=== PATIENT | female | born 1955 | race Caucasian/White ===

== ENCOUNTER 2016-07-14 07:58 | Inpatient (IN) | payer SELFPAY ==
[~2016-07-14] VITALS: Ht 172.7 cm; Wt 83.5 kg
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
--- NOTE | ~2016-07-14 | CON ---
PATIENT'S NAME: KENZIE GARY [facility] AGE: 61 Y [address] ROOM: [place] [address] LOCATION: GPCU ADMIT DATE: 07/14/2016 Consultation DISCHARGE DATE: FAMILY PHYSICIAN: PHYSICIAN, NO ATTENDING PHYSICIAN: JULIAN BECKER DATE OF CONSULTATION: 07/20/2016 REFERRING PHYSICIAN: Blayne Marroquin D.O. REASON FOR VISIT: Wound Care visit to evaluate and assess the patient's sacrum. HISTORY OF PRESENT ILLNESS: This is a 61-year-old female patient who was admitted to [facility] with a pulmonary mass. She has significant history of type 2 diabetes mellitus, essential hypertension, GERD, and a left lower leg vein stripping in 1994. The patient underwent a right thoracentesis on July [address] Marroquin[address] [facility] RN screened the patient via the skin assessment and the patient noted to have shear and friction areas to her buttocks. Nursing has been applying Aloe [place] to site and the patient has been performing pressure redistribution measures and turning herself in bed q.2 hours. The patient has never had a pressure ulcer before. 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 She admits to wearing "semi-support hose" on and off. She denies pain. She denies history of congestive heart failure. She denies intermittent claudication symptoms. PAST MEDICAL HISTORY: Pneumonia, diabetes type 2, essential hypertension, GERD, osteoarthritis. PAST SURGICAL HISTORY: section x4 and a left lower leg vein stripping. FAMILY HISTORY: The patient's mother suffered from diabetes. SOCIAL HISTORY: The patient lives in [place], [place]. 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 She quit smoking in 2005. Prior to that, she had a 43-okqz-zxyi history. The patient denies alcohol or illegal drug use. ALLERGIES: PATIENT'S NAME: ABDIRAHMAN [facility] AGE: 61 Y [address] ROOM: [place] [address] LOCATION: GPCU ADMIT DATE: 07/14/2016 Consultation DISCHARGE DATE: FAMILY PHYSICIAN: PHYSICIAN, NO ATTENDING PHYSICIAN: JULIAN BECKER. CURRENT MEDICATIONS: Please refer to the medication administration record. REVIEW OF SYSTEMS: A 10-point review of systems was completed and all negative except as mentioned above in the HPI. PHYSICAL EXAMINATION: VITAL SIGNS: Temperature 98.3, pulse 83, respirations 20, blood pressure 138/65, and pulse oximetry 94%. Height 5 feet and 8 inches. Weight 93.0 kg. GENERAL: The patient is alert and oriented. Talkative. Slightly unkempt. HEENT: Head normocephalic and atraumatic. Anicteric sclerae. Oral mucosa intact. NECK: Supple. CARDIOVASCULAR: Regular rate and rhythm. ABDOMEN: Soft and nontender. EXTREMITIES: +1 pedal pulses to the left foot and +2 to right foot. Long thick mycotic toenails. Slight dryness to feet. Heels intact. Extremities are warm to touch. Telangiectasia around ankles. SKIN: No open areas noted. Blanchable redness to buttocks and sacrum. Shear and friction area has resolved. Groin folds intact. Dressing intact to the right lateral chest, chest tube intact. LABORATORY DATA: White blood cell count is 10.2, hemoglobin 8.9, hematocrit 27.5, and platelets 353. Sodium 141, potassium 3.5, chloride 106, bicarb 26, BUN 5, creatinine 0.7, glucose 194, and procalcitonin 0.12. ASSESSMENT AND PLAN: Again, this is a 61-year-old female patient who was admitted to [facility] with a pulmonary mass. Wound Care was consulted to evaluate and assess the patient's buttocks. 1. Blanchable redness to sacrum. It appears the shear and friction area has resolved. No pressure ulcers noted. The patient is well aware of pressure redistribution measures and was instructed to turn herself in bed every 2 hours. Nursing is to continue to apply Aloe [place] q.i.d. and p.r.n. incontinence to this site. The patient was instructed to increase her protein intake. 2. Type 2 diabetes mellitus, the patient recently diagnosed. Hospitalist is managing. I would like to thank Dr. Marroquin for this consultation. PATIENT'S NAME: KENZIE GARY [facility] AGE: 61 Y [address] ROOM: [place] [address] LOCATION: GPCU ADMIT DATE: 07/14/2016 Consultation DISCHARGE DATE: FAMILY PHYSICIAN: PHYSICIAN, NO ATTENDING PHYSICIAN: BECKER,JORDAN HE LONDON MD MKS/fozia /[id number] d: 07/20/162007 t: 07/29/16 1604, CONSULTATION REPORT
--- NOTE | ~2016-07-14 | OR ---
PATIENT'S NAME: KENZIE GARY [facility] AGE: 61 Y [address] ROOM: [place] [address] LOCATION: GPCU ADMIT DATE: 07/14/2016 OR/Procedure Report DISCHARGE DATE: 07/26/2016 FAMILY PHYSICIAN: PHYSICIAN, WILLIS ATTENDING PHYSICIAN: Yasir Liu SURGEON: Blayne Whiteside DO [employer] CONSULTANT: DATE OF PROCEDURE: 07/18/2016 PREOPERATIVE DIAGNOSIS: Loculated right pleural effusion. POSTOPERATIVE DIAGNOSIS: Loculated right pleural effusion plus empyema. PROCEDURES: 1. Right thoracoscopy with evacuation of pleural effusion. 2. Decortication. BRIEF HISTORY: Ms. Gary is a 61-year-old white female, who on 07/15/2016, placed a chest tube to try and drain this loculated effusion. She has had some drainage, but chest x-ray continued to show significant effusion. She has been brought to the operative suite today for formal thoracoscopy for drainage of this effusion. She was brought to the operative suite, sterilely prepped and draped in a right lateral decubitus position for right thoracoscopy. The previous chest tube removed. An incision was created approximately 3 fingerbreadths below the scapular tip and we entered the pleural space under direct vision. Finger sweep yielded loose adhesions that were broken down. Chest suction was introduced and approximately 300 mL of serosanguineous fluid was evacuated. Thoracoscope was placed, dense gelatinous adhesions were throughout. We were able to place 2 separate incisions anterolaterally and posterolaterally for our accessory incisions. We carried out blunt and suction dissection throughout 2 areas of purulence. Cultures had been taken. 6 L of normal saline was used to irrigate the space. Decortication was undertaken with graspers and ring forceps and we freed loculations. Two chest tubes were placed without difficulty and secured to the chest wall. The remaining incisions were closed with 0 Vicryl, 2-0 Vicryl, and 4-0 Monocryl. Chest tubes were placed to suction. The patient was extubated and transferred to the recovery area in stable condition. BLAYNE WHITESIDE DO MCB/modl PATIENT'S NAME: KENZIE GARY [facility] AGE: 61 Y [address] ROOM: [place] [address] [facility] ADMIT DATE: 07/14/2016 OR/Procedure Report DISCHARGE DATE: 07/26/2016 FAMILY PHYSICIAN: WILLIS DURAN ATTENDING PHYSICIAN: Yasir Liu /[id number] d: 08/01/16 1808 t: 08/02/16 1143, OPERATIVE SUMMARY
--- NOTE | ~2016-07-14 | OR ---
PATIENT'S NAME: KENZIE GARY [facility] AGE: 61 Y [address] ROOM: [place] [address] LOCATION: [facility] ADMIT DATE: 07/14/2016 OR/Procedure Report DISCHARGE DATE: FAMILY PHYSICIAN: PHYSICIAN, NO ATTENDING PHYSICIAN: JULIAN BECKER SURGEON: Lavelle Moody MD MECHANICAL CAD DESIGNER: DATE OF PROCEDURE: 07/15/2016 PROCEDURE PERFORMED: Right thoracentesis. PREOPERATIVE DIAGNOSIS: Complex pleural effusion. POSTOPERATIVE DIAGNOSIS: Complex pleural effusion. NARRATIVE: After obtaining informed consent, we proceeded. Fluid was localized by ultrasound. Topical anesthesia was obtained with 1% lidocaine. Thoracentesis catheter was then used to enter the pleural space. 20 mL of cloudy fluid was removed. We were unable to drain any more than that. The patient tolerated the procedure well. No complications. LAVELLE MOODY MD DEC/modl /[id number] d: 07/15/16 1614 t: 07/29/16 1454, OPERATIVE SUMMARY
--- NOTE | ~2016-07-14 | ER ---
PATIENT'S NAME: DEBORAH GARY [facility] AGE: 61 Y [address] ROOM: [place] [id number] LOCATION: [facility] [place] ADMIT DATE: 07/14/2016 ER/Outpatient Report DISCHARGE DATE: FAMILY PHYSICIAN: PHYSICIAN, NO ATTENDING PHYSICIAN: JULIAN BECKER Time of Arrival: 0755 hours. Time of Evaluation: 0755 hours. CHIEF COMPLAINT: Altered mental status. HISTORY OF PRESENT ILLNESS: The patient is a 61-year-old female, who presents to the emergency department today with a chief complaint of altered mental status. The patient was discharged from the hospital on . 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 When the family got here, they checked on the patient, and they found her minimally responsive. Medical system alert was called at that time, and she was sent to the emergency department for further evaluation and treatment. Upon arrival here in the emergency department, the patient is alert. She has slurred speech and slurred comprehension but is able to answer questions. Denies any chest pain. No shortness of breath. No fevers or chills. No nausea or vomiting. No diarrhea or constipation. The patient was found with oxygen saturation 88% and was started on 2 L nasal cannula. The patient has recently been started on medications after discharge from the hospital. PAST MEDICAL HISTORY: Recent pneumonia. The patient was recently diagnosed with diabetes mellitus, noninsulin dependent. PAST SURGICAL HISTORY: C section x3. 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 Uses alcohol occasionally. Denies any illicit drug use. FAMILY HISTORY: Positive for diabetes in her father. ALLERGIES: SULFA. MEDICATIONS: Please see list. PATIENT'S NAME: DEBORAH GARY [facility] AGE: 61 Y [address] ROOM: [place] [id number] LOCATION: [facility] ADMIT DATE: 07/14/2016 ER/Outpatient Report DISCHARGE DATE: FAMILY PHYSICIAN: PHYSICIAN, WILLIS ATTENDING PHYSICIAN: JULIAN BECKER PRIMARY CARE DOCTOR: None local. REVIEW OF SYSTEMS: All systems were reviewed by myself and are negative with the exception of those discussed in the HPI and past medical history. PHYSICAL EXAMINATION: VITAL SIGNS: Weight 83.3 kg, blood pressure 144/70, pulse 79, respiratory rate 18, temperature 96.6, oxygen saturation 97% on room air. GENERAL: The patient is a 61-year-old female, who is sleepy but arousable, oriented. HEENT: Normocephalic, atraumatic. Pupils are equal, round, and reactive to light and accommodation. Extraocular motions are intact. Nares are patent bilaterally. Mucous membranes are mildly dry. NECK: Supple. There is no nuchal rigidity. CARDIOVASCULAR: Regular rate and rhythm. No murmurs, rubs, or gallops. LUNGS: Diminished diffusely. Diffuse crackles. ABDOMEN: Soft, nontender, and nondistended. No rebound, rigidity, or guarding. MUSCULOSKELETAL: The patient moves all 4 extremities. Downward going toes. No clonus. 2/4 reflexes. Equal automobile glass technician strength. No pronator drift. Slurred speech. Slow comprehension. SKIN: Warm and dry. LABORATORY DATA AND X-RAYS: Labs and x-rays are obtained. Accu-Chek is 52. Lactate is normal. CBC: White blood cell count 15.8, otherwise normal. LFTs are normal. CMP is normal except for potassium 2.8, calcium is 8.0. LFTs are normal. EKG is obtained. It is interpreted by myself shows sinus rhythm with a rate of 62, normal intervals, normal axis, no ST elevation, ST depression, or T-wave inversions. There is incomplete right bundle-branch block. Coags are normal. CK is normal. CK-MB is normal. Troponin is normal. BNP is 512. Head CT is negative. Procalcitonin is 0.16. Chest x-ray shows new spherical fluid loculation. Urine shows 50 glucose, 25 blood, rare wbc's, rbc's, and bacteria. CT scan of the chest was obtained. I have discussed results with the radiologist, shows loculated effusion on the right with the nodule, concerned for potential mass. There is also opacification of the left upper lobe. IMPRESSION: 1. Large loculated complex pleural effusion on the right, streaky consolidation opacity in the left upper lobe with suspected adenopathy, malignant process very likely. PATIENT'S NAME: DEBORAH GARY [facility] AGE: 61 Y [address] ROOM: [address] [address] LOCATION: [facility] ADMIT DATE: 07/14/2016 ER/Outpatient Report DISCHARGE DATE: FAMILY PHYSICIAN: , WILLIS ATTENDING PHYSICIAN: JULIAN BECKER 2. Persistent hypoglycemia, on Sulfonylurea. 3. Hypokalemia. 4. Healthcare-associated pneumonia. 5. Recent diagnosis of diabetes mellitus. 6. Initial visit. EMERGENCY DEPARTMENT COURSE: The patient was brought back to the examination room. Seen and evaluated by myself. IV is established. Accu-Chek is obtained. The patient is given 1 amp of D50 with significant improvement in the patient's symptoms. Further laboratory analysis and imaging are obtained. A CT scan was also obtained. I have discussed the results and that was negative. The patient is observed here in the emergency department. Her sugars continued to trend downward. We did get another half amp of D50, and then started her on a D10 half-normal saline drip at 100 mL per hour. The patient's chest x-ray returns, and the CT scan is obtained, which does show the concerning symptoms as described above. The patient is initiated on Zosyn and vancomycin. The patient is also given 60 mEq of potassium p.o. as well as 20 mEq IV over 2 hours. I have discussed the case with Dr. Becker, who is on-call for the Hospitalist Service. He was seen and evaluated the patient down here in the emergency department. He does agree to accept the patient for further evaluation and treatment management. I did contact Dr. Willard Galeana, who is a cousin of Deborah. I discussed the case with him. I have attempted to contact Sage, her son, as well. We are unable to contact him at this time. The phone numbers are apparently wrong. I have discussed the case with the patient. I recommend admission. She is agreeable. The patient did require critical care time of 38 minutes. This did include talking with family, talking with the patient, talking with consultants, ordering tests, reviewing tests, as well as close monitoring of the patient with multiple medical problems at this time. DISPOSITION: The patient is admitted under the care of the Hospitalist Service in stable condition. DO KINA YUN/modl /[id number] d: 07/14/162051 t: 07/15/161721, OUTPATIENT REPORT
--- NOTE | ~2016-07-14 | HP ---
PATIENT'S NAME: ABDIRAHMAN [facility] AGE: 61 Y [address] ROOM: G3217 [place] [address] [place]ATION[place] [facility] AD[place] DATE: 07/14/2016 History & Physical DISCHARGE DATE: FAMILY PHYSICIAN: PHYSICIAN, WILLIS ATTENDING PHYSICIAN: JULIAN BECKER DATE OF SERVICE: CHIEF COMPLAINT: Not feeling well in general and lightheaded. HISTORY OF PRESENT ILLNESS: This is a 61-year-old female who was recently admitted here 5 days ago for community-acquired pneumonia and was also found to have a new onset type 2 diabetes. When the patient was discharged, the patient says that she still feels weak and dry cough was still persistent, but has not worsened. She denies any shortness of breath or chest pain. Her appetite has been poor for the last few days, but she continued to take the diabetic medication as prescribed. She said she has been feeling bloated and having frequent loose stools up to 4 to 5 episodes per day for the last few days. She also felt some chills but she specifically denies any worsening shortness of breath or any productive cough or chest pain. The patient was supposed to be going back to [place] today. Her family member in [place] sent some friends over to pick her up, but she was found to be somewhat confused according to the ER note and the patient was later transferred here to the ER for evaluation. The patient is a poor historian and cannot really tell me what happened today but based on the documentation, the patient was found to be in really confused; therefore, the friends from the family member in [place] brought her here for evaluation. REVIEW OF SYSTEMS: As mentioned in the history of present illness. All other system review negative except those mentioned in history of present illness. PAST MEDICAL HISTORY: 1. Recently diagnosed new onset type 2 diabetes. 2. Recently admitted here and discharged 5 days ago for community-acquired pneumonia. 3. Hypertension. ALLERGIES: SULFA. THE PATIENT STATES THAT SHE HAS ANAPHYLACTIC REACTION AND ALSO REINALDO HEAVENLY SYNDROME. HOME MEDICATIONS: 1. Tylenol 325 to 650 mg p.o. every 4 hours p.r.n. for pain or fever. 2. Aspirin 325 mg to 650 mg p.o. every 4 hours p.r.n. for pain. PATIENT'S NAME: ABDIRAHMAN [facility] AGE: 61 Y [address] ROOM: G3217 [place], [place] [address] LOCATION: [facility] ADMIT DATE: 07/14/2016 History & Physical DISCHARGE DATE: FAMILY PHYSICIAN: PHYSICIAN, WILLIS ATTENDING PHYSICIAN: JULIAN BECKER 3. Lisinopril 25 mg p.o. daily. 4. Metformin 1000 mg p.o. b.i.d. 5. Levaquin 750 mg p.o. daily, continue for 7 days, to be finished on July 16, 2016. 6. Glimepiride 2 mg p.o. every day before breakfast. SOCIAL HISTORY: She was a former cigarette smoker about one and half pack per day for 10 years and she quit smoking about 3 weeks ago. She denies any alcohol. She denies any illegal drug use. FAMILY HISTORY: The patient cannot recall any medical problem with her father. Her mother does have diabetes type 2. PAST SURGICAL HISTORY: Status post 4 times in the past. PHYSICAL EXAMINATION: VITAL SIGNS: At the time of my dictation, temperature 98, blood pressure 130/80, heart rate 80, respirations 16, and saturation 94% on room air. Pain 0/10. GENERAL APPEARANCE: Alert and oriented x3, in no acute distress. HEENT: Pupils equally round and reactive to light. Extraocular muscles intact. Anicteric sclerae. Nasal turbinates are normal bilaterally. Moist oral mucosa. No oral thrush. No oropharyngeal exudate or erythema. NECK: No JVD. No cervical lymphadenopathy. No neck stiffness. CARDIOVASCULAR: Regular rate and rhythm. Normal S1, S2. No murmur. No rubs, no gallops. RESPIRATORY: She has crackles in the right lower lung and decreased breath sounds in bibasilar bases; however no wheezing, no rhonchi, and no rales. ABDOMEN: Obese, soft, nontender, nondistended, normal bowel sounds, no hepatosplenomegaly. EXTREMITIES: No edema in upper or lower extremities. SKIN: She does have onychomycosis in bilateral feet. Dorsalis pedis pulses +2 bilaterally symmetrical and present. No ulcer, no rash, and no cyanosis. MUSCULOSKELETAL: No joint pain. No muscle pain. Range of motion intact. LABORATORY DATA: Lactic acid 1.1. CPK 22. Troponin less than 0.04. ProBNP 512. White blood cell 15.8, hemoglobin 13.1, hematocrit 38.9, MCV 92.4, and platelet 395. Glucose 52, BUN 7, creatinine 0.6, sodium 138, potassium 2.8, chloride 103, CO2 of 23, calcium 8.0. Total protein 7.0, albumin 2.1, AST 32, ALT 18, alkaline phosphatase 109. Total bilirubin 0.4. GFR more than 60. Anion gap 14.8. INR 1.0. Urinalysis negative for UTI. Procalcitonin 0.16. CK-MB 0.8. PATIENT'S NAME: KENZIE GARY [facility] AGE: 61 Y [address] ROOM: [place] [address] LOCATION: [facility] ADMIT DATE: 07/14/2016 History & Physical DISCHARGE DATE: FAMILY PHYSICIAN: PHYSICIAN, NO ATTENDING PHYSICIAN: JULIAN BECKER IMAGING STUDIES: 1. Chest x-ray on admission showed new spherical opacity at the right chest base, may well reflect fluid loculated in the fissure. Continued prominence of the pulmonary vascularity particularly in the left lung, although there has been some improvement. 2. CT of the brain without contrast on admission negative head CT. 3. CT pulmonary angiogram on admission showed large loculated complex pleural effusion on the right. No pulmonary embolism. Complex streaky consolidating fibronodular opacity in the left upper lobe with some volume loss. Also suspected adenopathy at the AP window. Malignant process should be considered very likely in this patient who is a smoker. 4. EKG on admission: Show sinus rhythm with heart rate of 62 with incomplete right bundle-branch block. QRS 101. No acute ischemic changes. EMERGENCY ROOM COURSE: In the emergency room, the patient was given 60 mEq p.o. potassium chloride, 20 mEq IV potassium chloride, and received dextrose 50% one amp of hypoglycemia 52. ASSESSMENT AND PLAN: 1. Recent pneumonia and now with a large loculated right pleural effusion and the left upper opacity concerning for malignancy: The patient could be suffering from postobstructive pneumonia, even though clinically she does not look that bad. However given that she is still recovering from the pneumonia from recent admission and in the setting of a possible lung malignancy in the right pleural effusion, likely could be parapneumonic or even empyema, in this case I will cover her in the meantime with triple antibiotic coverage with IV vancomycin and IV zosyn and p.o. Levaquin. She is not wheezing. She does not have a formal diagnosis of chronic obstructive pulmonary disease, therefore no steroids for now. I will give her nebulization p.r.n. titrated by RT for RSS. Also, check influenza antigen swab. We will consult Pulmonology for further recommendation. She already had breakfast therefore for now, she can continue to have a diabetic diet until seen by Pulmonology to see for further procedure they would like to perform. The patient is on room air right now, therefore there is no urgency, therefore I will put her on the diabetic diet for now. Further plan depends on clinical course. I have told the patient that right upper opacity could suggest malignancy given that she is a heavy smoker in the past and she understands. 2. Regarding her hypoglycemia: This is most likely from the decreased oral intake and she continued to take the antidiabetic hypoglycemic agents in the morning at home. I will check the fingerstick glucose every 2 hours for now and give her dextrose 50% depending on the fingerstick glucose. PATIENT'S NAME: KENZIE GARY [facility] AGE: 61 Y [address] ROOM: [place] [address] LOCATION: [facility] ADMIT DATE: 07/14/2016 History & Physical DISCHARGE DATE: FAMILY PHYSICIAN: PHYSICIAN, NO ATTENDING PHYSICIAN: JULIAN BECKER Encourage oral intake. I will give her some juice right now. Continue diabetic diet for now. I will not check A1c because A1c was checked a few days ago from the last admission. Further plan depends on clinical course. 3. Regarding her hypokalemia: Will replace with p.o. and IV. Check basic metabolic panel later today and replace as necessary. Hypokalemia likely is from the diarrhea that she has been having. Given that she has recent exposure to antibiotics and now with a 4 to 5 episodes of loose stools per day, it is highly concerning for C. diff. For this reason, I am going to empirically put her on the C. diff precaution until C diff stool test comes back. 4. Regarding her loose stool: I will check stool for C. diff. For now, start the C. diff precaution until C diff test comes back. 5. Diabetes type 2: Sliding scale insulin with aspart low dose. Check her fingerstick every 2 hours for now. Make sure she is not hypoglycemic. 6. Deep vein thrombosis prophylaxis: She will be on compression devices until seen by Pulmonology to see if she has to undergo any procedure. Further plan depends on clinical course. Time spent on the day of admission 40 minutes including chart review, interviewing the patient, examining the patient, addressing all the questions and concerns that the patient had, and going over the plan of care with the patient. MD MAY KAISER/fozia /[id number]: [id number] T: [id number] HISTORY & PHYSICAL
--- NOTE | ~2016-07-14 | CON ---
PATIENT'S NAME: ABDIRAHMAN [facility] AGE: 61 Y [address] ROOM: [address] [place] [id number] LOCATION: [facility] ADMIT DATE: 07/14/2016 Consultation DISCHARGE DATE: FAMILY PHYSICIAN: PHYSICIAN, NO ATTENDING PHYSICIAN: JULIAN BECKER DATE OF CONSULTATION: 07/14/2016 REFERRING PHYSICIAN: Lavelle Moody MD CHIEF COMPLAINT: Shortness of breath. HISTORY OF PRESENT ILLNESS: The patient is a 61-year-old woman who was hospitalized last week with pneumonia. She was discharged after a course of antibiotics, but re-presented earlier today with pain in her right chest. Chest x-ray and CT scan demonstrated a loculated right pleural effusion. There were changes in the left upper lobe that the radiologist interpreted as a possible mass. It looks to me like it is residual infiltrate from her extensive left-sided pneumonia. PAST MEDICAL HISTORY: Please refer to the admission history and physical exam. FAMILY HISTORY: Negative for significant lung disease. SOCIAL HISTORY: Single. 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 SYSTEM REVIEW: As per HPI. PHYSICAL EXAMINATION: GENERAL: Looks older than her stated age. ENT: Unremarkable, except for arcus senilis. NECK: Normal. CHEST: Hyperinflated lungs, expiratory rhonchi, diminished breath sounds on the right posteriorly. HEART: Regular. ABDOMEN: Obese and nontender. EXTREMITIES: Trace of edema. ASSESSMENT: Loculated left pleural effusion. PATIENT'S NAME: ABDIRAHMAN [facility] AGE: 61 Y [address] ROOM: [place] [id number] LOCATION: [facility] ADMIT DATE: 07/14/2016 Consultation DISCHARGE DATE: FAMILY PHYSICIAN: PHYSICIAN, NO ATTENDING PHYSICIAN: JULIAN BECKER PLAN: We will attempt thoracentesis, but I suspect she will need chest tube or VATS to clear that complex effusion. MD MALENA SANDOVAL/fozia /[id number] d: 07/15/16 1619 t: 07/29/16 1456, CONSULTATION REPORT
--- NOTE | ~2016-07-14 | DS ---
PATIENT'S NAME: ABDIRAHMAN [facility] AGE: 61 Y [address] ROOM: [place] [address] LOCATION: [facility] ADMIT DATE: 07/14/2016 Discharge Summary DISCHARGE DATE: 07/26/2016 FAMILY PHYSICIAN: , WILLIS ATTENDING PHYSICIAN: Yasir Liu PRINCIPAL DISCHARGE DIAGNOSES: Complex right pleural effusion, empyema. SECONDARY DIAGNOSES: 1. Strep pneumoniae bilateral pneumonia, community-acquired. 2. Anemia of acute blood loss, status post transfusion of 2 units of packed red blood cells, on 07/18/2016. 3. Recently diagnosed diabetes mellitus type 2, poorly-controlled with hemoglobin A1c 12.0, on 07/05/2016. 4. Severe hypoglycemia on admission. 5. Former smoker. 6. Hypertension. 7. Obstructive sleep apnea, diagnosed in the early , never treated. 8. [id number] hypoxic respiratory failure, present on admission with shock, related to hypovolemia. CONSULTATIONS: 1. Dr. Marroquin of Cardiothoracic Surgery. 2. Pulmonology, Dr. Moody, on 07/14/2016. PROCEDURES: 1. Thoracentesis on 07/15/2016. 2. Right chest tube placement, 07/15/2016. 3. Right thoracoscopy with decortication (VATS) on 07/18/2016. COMPLICATIONS: None. BRIEF SUMMARY: Ms. Gary is a 61-year-old female who was a heavy smoker until recently. She was admitted here initially on 07/05/2016 for an acute community-acquired pneumonia. She had a positive pneumococcal antigen. She was treated with IV antibiotics and improved. She was discharged with a prescription for 7 days of Levaquin to finish a 10 day course. At that time, she was encouraged to stop smoking. She had also been diagnosed with diabetes during the initial hospital stay and was discharged on metformin, Amaryl, and lisinopril. She was planning on traveling back to her home in [place] when she became acutely ill and returned to the hospital with altered mental status, weakness, dry cough, and she was also feeling bloated with diarrhea at that time. She was found to have a large complex pleural effusion, which did not respond well to thoracentesis and required chest tube drainage. [facility] 61 Y [address] ROOM: G6316 [place], [place] [address] [facility] ADMIT DATE: 07/14/2016 Discharge Summary DISCHARGE DATE: 07/26/2016 FAMILY PHYSICIAN: PHYSICIAN, NO ATTENDING PHYSICIAN: Yasir Liu Following that, decortication was done, she lost a significant amount of blood and was transfused. Following that, she improved gradually and was weaned from O2 during the day. This morning while asleep, the respiratory therapist found O2 saturation of 86%. It improved to the low 90s when awake. Additional problems at initial hospitalization were hypoglycemia and shock. These responded well to glucose and fluid administration. She has been improving with her appetite. She has had no more diarrhea or abdominal problems. She was treated with insulin for awhile for hyperglycemia, but because we knew she could not afford insulin as an outpatient she was transitioned back to metformin and the dose has been increased to 875 b.i.d. She currently has metformin 1000 mg tablets. I have advised her she should take half-a-tab that will be 500 mg p.o. t.i.d. with meals. She was given a glucometer before. She has had more diabetic education and is encouraged to make good nutritional choices. She is apprised of the current status with elevated white count and elevated platelet count, which will need to be followed up, and she is given a script to have her blood count drawn in a week. She also is aware of abnormal CT scan of her chest showing a fibronodular area in the left upper lobe and she is advised to have a CT of her chest in October for followup of this. She is encouraged [place] but as she may not be back she will be given paper scripts and paper instructions about all of these things. INSTRUCTIONS AT DISCHARGE: 1. Citizen [employer] [place] [employer], low carb and low fat diet. 2. Exercise as tolerated. I have recommend 50 minutes walk in the morning and 50 minutes walk in the evening. 3. Followup appointment with Oracio Bliss on Thursday before she leaves [place], Thursday, July 28, if possible. 4. Other outpatient followup, she should have a new polysomnography, CBC in 1 week, the CT in 3 months. She is instructed to notify a doctor of any temp greater than 101, acute onset of chills, sweats, or recurrent cough. MEDICATIONS AT THE TIME OF DISCHARGE: Include aspirin 325 mg p.o. daily with food for thrombocytosis, lisinopril 2.5 mg p.o. daily for diabetes and hypertension, metformin should be 500 mg with each meal t.i.d., she already has the tablets and does not need a new script for that. She can take a probiotic t.i.d. not with at the same time as the antibiotic. She will be given a script for [place] 5/325 for use daily. She could use [id number] Tylenol for other pain as needed. The patient is instructed to hold her PATIENT'S NAME: KENZIE GARY [facility] AGE: 61 Y [address] ROOM: [place] [address] [facility] ADMIT DATE: 07/14/2016 Discharge Summary DISCHARGE DATE: 07/26/2016 FAMILY PHYSICIAN: PHYSICIAN, WILLIS ATTENDING PHYSICIAN: Yasir Liu, I think her glucose is relatively well-controlled, just on the metformin, and she will be given amoxicillin 1 g p.o. t.i.d. x4 weeks. I have given her a script that she can get the first 2 weeks supply and then pay for the second 2 weeks later. CONDITION AT DISCHARGE: Very good. MAGDALENE THOMAS MD LM/fozia /[id number] d: 07/27/16 0134 t: 07/28/16 1433, DISCHARGE SUMMARY
--- NOTE | ~2016-07-14 | OR ---
PATIENT'S NAME: KENZIE GARY [facility] AGE: 61 Y [address] ROOM: [place] [address] LOCATION: [facility] ADMIT DATE: 07/14/2016 OR/Procedure Report DISCHARGE DATE: 07/26/2016 FAMILY PHYSICIAN: PHYSICIAN, WILLIS ATTENDING PHYSICIAN: Yasir Liu SURGEON: Blayne Marroquin DO M[place] PROGRAM DIRECTOR: DATE OF PROCEDURE: 07/15/2016 PREOPERATIVE DIAGNOSIS: Right pleural effusion with loculation. POSTOPERATIVE DIAGNOSIS: Right pleural effusion with loculation. PROCEDURE: Insertion of 14-Libyan right chest tube. BRIEF HISTORY: Ms. Gary is a 61-year-old white female with the above-noted diagnosis. She has been seen by Dr. Moody. Limited thoracentesis was successful, but she continues to have pleural effusion. We have been asked to place a chest tube. The right lateral chest wall was sterilely prepped and draped in the inframammary crease. We accessed the pleural cavity with a needle, aspirating fluid. The guidewire was fed through the needle and the needle was removed. Stab incision was made. Serial dilator was placed over the guidewire and removed, and then the 14-Libyan catheter was placed over the guidewire, and the guidewire and dilator were removed. The catheter was connected to suction and secured to the skin with 2-0 silk and a sterile dressing. Chest x-ray is pending. DO CATHERINE DYSON/fozia /[id number] d: 08/01/16 175 t: 08/02/16 1141, OPERATIVE SUMMARY
[~2016-07-14 07:58] MED LIST: AMARYL2 MG PO; ASPIRIN325 MG PO; GLUCOPHAGE1000 MG PO; LEVAQUIN 750 M750 MG PO; LISINOPRIL2.5 MG PO; TYLENOL325 MG PO
[2016-07-14 08:21] LABS: BASOPHIL # 0.1 K/uL (0.0-0.2); BASOPHIL % 0.4 %; EOSINOPHIL % 0.2 %; HEMATOCRIT 38.9 % (33.0-46.0); HEMOGLOBIN 13.1 g/dL (10.0-15.0); IMMATURE GRANULOCYTE # 0.1 K/uL (0.0-0.3); IMMATURE GRANULOCYTE % 0.4 %; LYMPHOCYTE # 2.3 K/uL (0.8-4.0); LYMPHOCYTE % 14.5 %; MCH 31.1 pg (27.0-34.0); MCHC 33.7 gm/dL (32.0-36.5); MCV 92.4 fl (83.0-98.0); MONOCYTE # 1.3 K/uL (0.0-1.0); MONOCYTE % 8.4 %; MPV 9.4 fl (9.4-12.4); NEUTROPHIL % 76.1 %; NRBC % 0 /100WBC (0-0.00); PLATELET COUNT 395 K/uL (150-450); RBC 4.21 M/uL (3.50-5.50); RDW-CV 13.2 % (11.9-14.6); WBC 15.8 K/uL (4.0-11.0)
[2016-07-14 08:29] LABS: PROTIME 10.8 SECONDS (9.6-11.1); PTT 31 SECONDS (25-32)
[2016-07-14 08:42] LABS: ALBUMIN 2.1 gm/dL (3.5-5.0); ALK PHOS 109 IU/L (33-138); ALT 18 IU/L (12-78); AST 32 IU/L (10-40); BLOOD UREA NITROGEN 7 mg/dL (6-24); CHLORIDE 103 mMol/L (96-110); CO2 23 mMol/L (22-32); CPK 22 IU/L (21-215); CREATININE 0.6 mg/dL (0.5-1.1); ESTIMATED GFR (MDRD EQUATION) > 60; SODIUM 138 mMol/L (135-145)
[2016-07-14 08:46] LABS: ANION GAP 14.8 (10.0-19.0); POTASSIUM 2.8 mMol/L (3.7-5.1); TOTAL BILIRUBIN 0.4 mg/dL (0.0-1.5)
[2016-07-14 10:06] LABS: BILIRUBIN URINE NEGATIVE (NEGATIVE); BLOOD URINE 25 /UL (NEGATIVE); GLUCOSE URINE 50 mg/dL (NEGATIVE); KETONE URINE NEGATIVE (NEGATIVE); LEUKOCYTES URINE NEGATIVE /UL (NEGATIVE); NITRITE URINE NEGATIVE (NEGATIVE); PROTEIN URINE NEGATIVE (NEGATIVE); SPEC GRAVITY URINE 1.015 (1.003-1.035); UROBILINOGEN URINE NORMAL (NORMAL)
[2016-07-14 10:10] LABS: COLOR URINE YELLOW (YELLOW); TURBIDITY URINE 1+ (CLEAR)
[2016-07-14 10:20] LABS: BACTERIA URINE RARE (NEGATIVE); RBC URINE RARE #/HPF (NEGATIVE); WBC URINE RARE #/HPF (NEGATIVE)
[2016-07-14 14:14] LABS: HEMATOCRIT 37.9 % (33.0-46.0); HEMOGLOBIN 12.6 g/dL (10.0-15.0); MCH 30.7 pg (27.0-34.0); MCHC 33.2 gm/dL (32.0-36.5); MCV 92.4 fl (83.0-98.0); MPV 9.1 fl (9.4-12.4); RBC 4.1 M/uL (3.50-5.50); RDW-CV 13.2 % (11.9-14.6); WBC 13.2 K/uL (4.0-11.0)
[2016-07-14 14:28] LABS: ANION GAP 12.7 (10.0-19.0); BLOOD UREA NITROGEN 8 mg/dL (6-24); CALCIUM 8.1 mg/dL (8.5-10.5); CHLORIDE 101 mMol/L (96-110); CO2 25 mMol/L (22-32); CREATININE 0.7 mg/dL (0.5-1.1); ESTIMATED GFR (MDRD EQUATION) > 60; POTASSIUM 3.7 mMol/L (3.7-5.1); SODIUM 135 mMol/L (135-145)
[2016-07-14] MEDS ORDERED: ZANTAC 7575 MG PO (14:33)
--- NOTE | 2016-07-14 15:26 | NUR ---
Pt is 61 y/o female admit for pulmonary mass for hospitalist. Allergy to sulfa. Red and yellow bracelets on. Pt alert and oriented x3. Pt implies she frequently lives in her truck. 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 Hx of arthritis,gerd,pneumonia,joint stiffness,and pneumonia just last week. She walks with standby assist to bathroom. States she's had a pain on the right side of her back. Pulmonology to consult.
[2016-07-14 17:14] LABS: ANION GAP 15.9 (10.0-19.0); BLOOD UREA NITROGEN 6 mg/dL (6-24); CHLORIDE 103 mMol/L (96-110); CO2 23 mMol/L (22-32); CREATININE 0.7 mg/dL (0.5-1.1); ESTIMATED GFR (MDRD EQUATION) > 60; POTASSIUM 3.9 mMol/L (3.7-5.1); SODIUM 138 mMol/L (135-145)
[2016-07-14 17:22] LABS: MAGNESIUM 1.7 mg/dL (1.3-2.6); PHOSPHORUS 3.3 mg/dL (2.5-4.9)
--- NOTE | 2016-07-14 19:23 | NUR ---
Significant Event:Patient alert and oriented. Patient was supposed to be going home to [facility] today with family/friends after being on PCU 5 days ago, she was staying in the [facility] house. They called an assistance alert and took her to the ER. Patient brought to the floor. Negative for c-diff and negative for infulenza A and B. Ambulates with 1 person assist. Very talkative. IV to the right hand. Blood sugar at 1510 was 58 gave 1 amp D50. Accucheck at 1535 was 162 then at 1700 was 81. No extra insulin was given at that time. Patient did drink 2 apple juices and 2 orange juices. Patient having loose stools at this time. Also patient states that she is having some bloody vaginal discharge. Did note some blood on the toliet paper with the first time she went to the restroom. Went down for an ultrasound of chest. Gave IV vancomycin, IV zosyn, ER started potassium and gave oral dose of potassium prior to coming up to the floor. Refused nicotine patch states she quit three weeks ago. Calm and cooperative with cares. Will need blood sugars every 2 hours for 24 hours. Follow up: IV site, Blood sugars.
--- NOTE | 2016-07-15 08:15 | NUR ---
SIGNIFICANT EVENT: Patient alert & oriented. 1 PA to bathroom. D10 1/2NS infusing at 50 mL/hr to R) AC PIV. Q2h accuchecks - give 50 mL D50 for BG below 100 in addition to two juices and 2 pieces of buttered toast - D50 given x2. Mild SS insulin for BG above 200, no coverage as all BG's below 200. Thoracentesis this a.m. for R) pleural effusion - area marked by ultrasound. Intermittent Zosyn and Vanco. 3732 total in, 4200 out. Family contact info on white board. Cooperative with cares.
--- NOTE | 2016-07-15 14:52 | NUR ---
STUDENT NURSE CHART CHECKED BY NURSING INSRTUCTOR VAISHALI KOTHARI RN BSN
--- NOTE | 2016-07-15 15:35 | NUR ---
Met patient at bedside today. Introduced myself and explained the role of the CM department. Patient states she is a and she is wanting me to find placement for her at discharge. Patient states she is not comfortable being discharged and having to care for herself. Will be a challenge to find placement because she is self pay and does not have Medicare. I spoke to Gisell Nassar and informed her that patient is wanting placement. [facility] and see what [facility] options we have available.
--- NOTE | 2016-07-15 16:20 | NUR ---
Significant Event: PT AO. VSS ON RA, AFEBRILE. IV TO R AC, CONTINUES ON IV ABX. D10W DC'D. ACCUCHECKS Q2HR TODAY, ONLY 1X WAS <100, SO AMP D50X1. 1700 STARTS ACHS ACCUCHECKS, MILD SSI. LABS ORDERED FOR AM, ORDERS RECIEVED FOR IMMODIUM PRN LOOSE STOOLS. TELEMETRY ON WITH NO CALLS. AMBULATES WITH SBA. DENIES PAIN/NAUSEA. HAD A R THORACENTESIS THIS AM, ONLY MINIMAL TAKEN OFF DUE TO VISCOSITY. CONSULT IN FOR DR WHITESIDE FOR CHEST TUBE PLACEMENT, HAS NOT BEEN AROUND YET. Follow up: MONITOR BLOOD SUGARS, DR WHITESIDE CONSULT
--- NOTE | 2016-07-16 04:33 | NUR ---
Significant Event:PT AAOX3,VERY TALKATIVE AND PLEASANT WITH STAFF. UP WITH 1 ASSIST STAND BY. DOES WELL WITH THIS. CHEST TUBE IN PLACE TO RIGHT LATERAL SIDE. DRESSING REINFORCED AT HS.DOCTOR NOTIFIED OF THIS. COMPLAINS OF PAIN TO THIS AREA.LAST NORCO GIVEN AT 0330.ACHS 146 AT HS. REQUEST SNACKS DURING NIGHT.IMMODIUM GIVEN AT HS FOR LOOSE STOOLS. PT STATES THEY ARE IMPROVING HAD 4 LOOSE STOOLS DURING SHIFT. IV TO RIGHT AC. BUTTOCKS RED, PERICARE AND BARRIER APPLIED. PT REPOSISTIONS SELF.LUNG SOUNDS CLEAR/DIMINSHED. 80ML OUT OF CHEST TUBE DURING THIS SHIFT.CHEST TUBE ON CONTINOUS SUCTION. USES CALL LIGHT APPROP. Follow up:
[2016-07-16 05:39] LABS: HEMOGLOBIN 11.3 g/dL (10.0-15.0); MCH 30.5 pg (27.0-34.0); MCHC 32.3 gm/dL (32.0-36.5); MCV 94.3 fl (83.0-98.0); MPV 9.6 fl (9.4-12.4); PLATELET COUNT 363 K/uL (150-450); RBC 3.71 M/uL (3.50-5.50); RDW-CV 13.3 % (11.9-14.6); WBC 12.8 K/uL (4.0-11.0)
[2016-07-16 05:59] LABS: ALBUMIN 2.1 gm/dL (3.5-5.0); ANION GAP 13.9 (10.0-19.0); BLOOD UREA NITROGEN 9 mg/dL (6-24); CALCIUM 7.8 mg/dL (8.5-10.5); CHLORIDE 103 mMol/L (96-110); CO2 24 mMol/L (22-32); CREATININE 0.8 mg/dL (0.5-1.1); ESTIMATED GFR (MDRD EQUATION) > 60; PHOSPHORUS 3.8 mg/dL (2.5-4.9); POTASSIUM 3.9 mMol/L (3.7-5.1); SODIUM 137 mMol/L (135-145)
[2016-07-16 06:21] LABS: LYMPHOCYTE # 4.2 K/uL (0.8-4.0); LYMPHOCYTE % 33 %; MONOCYTE # 1.2 K/uL (0.0-1.0); SEGMENTED NEUTROPHIL % 55 %
--- NOTE | 2016-07-16 12:39 | NUR ---
Transferred care to Irene Ornamental Machine Operator. Placed patient on the TCU wait list via email at approximately 1115 today. I let BONIFACIO Salter know that I placed patient on the list.
--- NOTE | 2016-07-16 16:15 | NUR ---
PATIENT ALERT AND ORIENTED X3. VSS. UP WITH SBA. CHEST TUBE TO RIGHT SIDE, DRESSING C/D/I, WILL CONTINUE TO MONITOR FOR NEED TO RE-INFORCE DRESSING, CHEST TUBE TO CONTINUOUS SUCTION. PATIENT C/O PAIN AROUND CHEST TUBE SITE. RECIEVED PRN NORCO X2 LAST AT 1548. REPORTS PAIN WELL CONTROLLED WITH ORAL PAIN CONTROL. NO CREPITUS NOTED TO CHEST TUBE SITE. TOLERATING DIET WELL. AC/HS ACCUCHECKS WITH SLIDING SCALE. NO HYPOGLYCEMIA NOTED. PATIENT AWAITING PLANS ON CHEST TUBE, AND DISCHARGE. PATIENT IS PLEASANT AND COOPERATIVE WITH CARES.
--- NOTE | 2016-07-17 04:34 | NUR ---
Significant Event: Pt is alert and oriented. VSS on 1L of 02. O2 order to keep above 94, pt felt slightly short of breath so we initiated 02 around 0100 with relief noted. ACHS accuchecks. TELE with no calls. Has been using bedside commode with standby assist. Chest tube dressing is clean/dry/intact on continuous suction. [place] given for pain last at 0120. Using cream to bottom. Follow Up: Continue to monitor dressing to chest tube.
[2016-07-17 05:24] LABS: BASOPHIL # 0.1 K/uL (0.0-0.2); BASOPHIL % 0.9 %; EOSINOPHIL # 0.2 K/uL (0.0-0.5); EOSINOPHIL % 1.9 %; HEMATOCRIT 35.8 % (33.0-46.0); HEMOGLOBIN 11.3 g/dL (10.0-15.0); IMMATURE GRANULOCYTE % 0.4 %; LYMPHOCYTE # 3.6 K/uL (0.8-4.0); LYMPHOCYTE % 31.9 %; MCH 30.1 pg (27.0-34.0); MCHC 31.6 gm/dL (32.0-36.5); MCV 95.5 fl (83.0-98.0); MONOCYTE # 0.9 K/uL (0.0-1.0); MONOCYTE % 7.5 %; MPV 9.4 fl (9.4-12.4); NEUTROPHIL # (ANC) 6.5 K/uL (1.8-7.8); NEUTROPHIL % 57.4 %; NRBC % 0 /100WBC (0-0.00); PLATELET COUNT 357 K/uL (150-450); RBC 3.75 M/uL (3.50-5.50); RDW-CV 13.2 % (11.9-14.6); WBC 11.3 K/uL (4.0-11.0)
[2016-07-17 05:34] LABS: CREATININE 0.8 mg/dL (0.5-1.1); ESTIMATED GFR (MDRD EQUATION) > 60
--- NOTE | 2016-07-17 11:29 | NUR ---
I have examined the student charting and find it acceptable. Juliano
--- NOTE | 2016-07-17 13:48 | NUR ---
Irene and I are sharing this case as I will be gone on Thursday. I met with patient again today to discuss placement options. I informed patient that I have placed calls to Eduard Nicholson at the [facility] [phone] and he directed me to call the [facility] Service [facility] [phone]. The [facility] directed me to contact [facility] at [phone]. I did contact [facility] and they directed me to call Shabnam De Leon at [phone]. I was able to talk with Shabnam at approximately 1130 today. She states that the patient does not pull up in the [facility] system so she has never received services in [facility]. Shabnam states she will forward patient's information to Enrollment/Eligibility to see if they can find out if patient has an service connection benefits or non-service direct benefits. 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 She reports that she has had medical care with the [facility] in [place] and in [place]. Deborah states she is not service connected as she has never applied for a disability or done any of the paperwork with the VA. She does not know if she would qualify for non service connected benefits for fdc care. This is something that Shabnam is looking into with her benefits. Patient confirms that she does not have any insurance. The only form of insurance she has is workman's comp. I explained to her that workman's comp will not cover any of her medical needs or hospital stay as this is not related to her job. She thinks it is related to her job stating she became ill while she was working and law enforcement pulled her over and said she was to sick to drive and brought her to the hospital. I reiterated with her this is not a workman's comp case. Patient will be having surgery tomorrow with Dr. Marroquin. I have updated NANCIE Bonilla on above information. Will continue to follow and offer supports as needed.
[2016-07-17 14:06] LABS: ALBUMIN 2.3 gm/dL (3.5-5.0); ANION GAP 11.9 (10.0-19.0); BLOOD UREA NITROGEN 8 mg/dL (6-24); CHLORIDE 101 mMol/L (96-110); CO2 28 mMol/L (22-32); CREATININE 0.8 mg/dL (0.5-1.1); ESTIMATED GFR (MDRD EQUATION) > 60; PHOSPHORUS 3.1 mg/dL (2.5-4.9); POTASSIUM 3.9 mMol/L (3.7-5.1); SODIUM 137 mMol/L (135-145)
--- NOTE | 2016-07-17 17:34 | NUR ---
Pt. is alert and oriented. VSS on 1L . 02 is ordered to maintain sats >94%. ACHS accuchecks. Tele on, no calls. Uses commode to toilet, mushy stools this shift. Immodium given x1. [place] given x2 for pain at chest tube site. Minimal output this shift, <10 mls. Dressing is CDI, on continuous suction. Aloe vesta to reddened bottom. Will have R)thoracotomy with drainage tomorrow. Belongings locked in safe. L)FA IV is SL. Ambulates with assistance.
--- NOTE | 2016-07-18 04:15 | NUR ---
Significant Event: Pt alert and Oriented x3. Cooperative with cares. SBA to bedside commode. Chest tube on right side intact to suction. tele on no calls. 1 L 02 to keep sats 94% percent. IV antibiotics other jesus SL. IV to left forarm. [place] given x2 for complaints of pain with relief. last dose 0200. ACHS accuchecks. will go down for sugery today check list started but concents are not signed no R/B on chart. NPO since midnight. Pre Surgical bath VSS. Denies SOB. cream to bottom encourage to change positions frequently. Follow up:
[2016-07-18 10:53] LABS: HEMATOCRIT 32.6 % (33.0-46.0); HEMOGLOBIN 10.3 g/dL (10.0-15.0)
--- NOTE | 2016-07-18 11:22 | NUR ---
A - PT SCREENED D/T LOS. CHEST TUBE. R) THORACOTOMY TODAY. HT: 68" WT: 191# LABS: ACCUCHECK REAS->300, GLU 197, ALB 2.3, WBC 11.3 MEDS: BOWEL/NAUSEA, REGLAN, SSI, VANCO, ZOSYN, FLORASTOR, LEVAQUIN DIET: NPO. WAS REGULAR. INTAKE: MOSTLY 50-100% NEEDS: 6663-2206 KCAL (20-25 KCAL/KG), 86-103 G PRO (1-1.2 G/KG), 2580 ML FLUID (30 ML/KG) D - NO NUTRITION RELATED DIAGNOSIS IDENTIFIED AT THIS TIME. I - GOAL FOR INTAKE TO REMAIN 50-100% FOR DURATION OF STAY. M/E - WILL ASSIST NEEDED.
--- NOTE | 2016-07-18 16:27 | NUR ---
Significant Event: PATIENT ALERT AND ORIENTED. TRASNFERRED FROM MSU AFTER THORACOSCOPY. CHEST TUBE TO RIGHT WITH 300ML OUTPUT. LEE PLACED AT 1630 FOR NO OUTPUT SINCE SURGERY. 400ML OUT. SBP 70-110. STARTED ON DOPAMINE TO KEEP MAP >65. PATIENT ALSO RECIEVED 500ML NS BOLUS AND ALBUMIN. REMAINS ON 4 LITERS 02 TOLERATING WELL. CLEAR LIQUIDS ADVANCED TOLERATED. Follow up:
[2016-07-18 18:23] LABS: HEMATOCRIT 22.6 % (33.0-46.0); HEMOGLOBIN 7.1 g/dL (10.0-15.0)
--- NOTE | 2016-07-19 02:36 | NUR ---
SIGNIFICANT EVENT: DOPAMINE OFF AT 0130. TWO UNITS PRBC GIVEN. DENIES SHORTNESS OF BREATH. TOLERATING DIET WELL. FOLLOW UP:
[2016-07-19 04:12] LABS: BASOPHIL # 0.1 K/uL (0.0-0.2); BASOPHIL % 0.5 %; EOSINOPHIL # 0.2 K/uL (0.0-0.5); EOSINOPHIL % 1.4 %; IMMATURE GRANULOCYTE % 0.4 %; LYMPHOCYTE # 3.6 K/uL (0.8-4.0); LYMPHOCYTE % 34.7 %; MCH 30.3 pg (27.0-34.0); MCHC 32.7 gm/dL (32.0-36.5); MCV 92.6 fl (83.0-98.0); MONOCYTE # 1.2 K/uL (0.0-1.0); MONOCYTE % 11.2 %; MPV 9.2 fl (9.4-12.4); NEUTROPHIL # (ANC) 5.4 K/uL (1.8-7.8); NEUTROPHIL % 51.8 %; NRBC % 0 /100WBC (0-0.00); PLATELET COUNT 329 K/uL (150-450); RBC 2.97 M/uL (3.50-5.50); WBC 10.4 K/uL (4.0-11.0)
[2016-07-19 04:15] LABS: HEMATOCRIT 27.5 % (33.0-46.0)
[2016-07-19 04:26] LABS: ALBUMIN 2.5 gm/dL (3.5-5.0); ANION GAP 11.4 (10.0-19.0); BLOOD UREA NITROGEN 7 mg/dL (6-24); CHLORIDE 106 mMol/L (96-110); CO2 25 mMol/L (22-32); CREATININE 0.9 mg/dL (0.5-1.1); ESTIMATED GFR (MDRD EQUATION) > 60; PHOSPHORUS 2.7 mg/dL (2.5-4.9); POTASSIUM 3.4 mMol/L (3.7-5.1); SODIUM 139 mMol/L (135-145)
[2016-07-19 04:27] LABS: CALCIUM 6.9 mg/dL (8.5-10.5)
--- NOTE | 2016-07-19 17:09 | NUR ---
Significant Event: Patient A/O x 3. Up with 1A to chair. VSS on 2L O2. Weaned from 3L this shift. R)thoractomy site with CT dressing changed. 170 ml out of chest tube. Incision dressing C/D/I. Lungs slightly coarse at times on right side. Blood pressures stable all shift off of dopamine. 1/2 NS infusing at 75 ml/hr through R)posterior FA. R)wrist and LFA PIV saline locked. Last [place] given at 1313 for right chest tube pain. ACHS accu checks. Follow up: Continue as per plan of care. Monitor chest tube output.
[2016-07-20 03:45] LABS: BASOPHIL # 0.1 K/uL (0.0-0.2); BASOPHIL % 0.6 %; EOSINOPHIL # 0.3 K/uL (0.0-0.5); HEMATOCRIT 27.5 % (33.0-46.0); HEMOGLOBIN 8.9 g/dL (10.0-15.0); IMMATURE GRANULOCYTE # 0.1 K/uL (0.0-0.3); IMMATURE GRANULOCYTE % 0.6 %; LYMPHOCYTE # 3.2 K/uL (0.8-4.0); LYMPHOCYTE % 30.3 %; MCH 29.9 pg (27.0-34.0); MCHC 32.4 gm/dL (32.0-36.5); MCV 92.3 fl (83.0-98.0); MONOCYTE # 1.1 K/uL (0.0-1.0); MONOCYTE % 10.6 %; NEUTROPHIL # (ANC) 5.8 K/uL (1.8-7.8); NEUTROPHIL % 54.9 %; NRBC % 0 /100WBC (0-0.00); PLATELET COUNT 353 K/uL (150-450); RBC 2.98 M/uL (3.50-5.50); WBC 10.6 K/uL (4.0-11.0)
[2016-07-20 04:01] LABS: ALBUMIN 2.3 gm/dL (3.5-5.0); ANION GAP 11.5 (10.0-19.0); BLOOD UREA NITROGEN 5 mg/dL (6-24); CALCIUM 7.4 mg/dL (8.5-10.5); CHLORIDE 106 mMol/L (96-110); CO2 26 mMol/L (22-32); CREATININE 0.7 mg/dL (0.5-1.1); ESTIMATED GFR (MDRD EQUATION) > 60; POTASSIUM 3.5 mMol/L (3.7-5.1); SODIUM 140 mMol/L (135-145)
--- NOTE | 2016-07-20 04:38 | NUR ---
Significant Event: A/OX3, VSS ON 2L PER NC. PT. GETS UP 1 ASSIST TO BSC. LEE INTACT WITH 3725ml UOP. MODERATE BM X2 THIS SHIFT. 1/2NS @ 75mL/HR TO R)FA IV. SLIV TO R)HAND. LS REMAIN SLIGHTLY COARSE TO RIGHT SIDE. SURGICAL DRESSING TO R)BACK IS C/D/I. CHEST TUBE DRESSING IS C/D/I, HAD 100mL SEROSANGIOUS DRAINAGE OUT. SLEPT WELL THROUGHOUT THE NIGHT. NO COMPLAINTS OF PAIN THIS SHIFT. Follow up: CONTINUE WITH POC.
--- NOTE | 2016-07-20 16:33 | NUR ---
Significant Event: Patient alert and oriented. Vital signs stable on 1-2 liters of oxygen via nasal cannula. Up to BS with assist of 1. Given norco for pain. Dressing changed to chest-tube sites. 150ml out of chest tube. IV infusing with no complications. Bumex given today. Martinez with 4000 of yellow urine out. Accu checks achs. Patient repositions self in bed. Pleasant and cooperative with cares. Has rested off and on throughout shift. Follow up:
[2016-07-21 03:38] LABS: BASOPHIL # 0.1 K/uL (0.0-0.2); BASOPHIL % 0.6 %; EOSINOPHIL # 0.4 K/uL (0.0-0.5); EOSINOPHIL % 3.6 %; HEMOGLOBIN 9.4 g/dL (10.0-15.0); IMMATURE GRANULOCYTE # 0.1 K/uL (0.0-0.3); IMMATURE GRANULOCYTE % 0.4 %; LYMPHOCYTE # 3.5 K/uL (0.8-4.0); LYMPHOCYTE % 31.3 %; MCH 30.1 pg (27.0-34.0); MCHC 32.4 gm/dL (32.0-36.5); MCV 92.9 fl (83.0-98.0); MONOCYTE # 1.2 K/uL (0.0-1.0); MONOCYTE % 10.5 %; MPV 9.3 fl (9.4-12.4); NEUTROPHIL % 53.6 %; NRBC % 0 /100WBC (0-0.00); PLATELET COUNT 397 K/uL (150-450); RBC 3.12 M/uL (3.50-5.50); RDW-CV 14.5 % (11.9-14.6); WBC 11.3 K/uL (4.0-11.0)
[2016-07-21 03:55] LABS: ANION GAP 13.4 (10.0-19.0); BLOOD UREA NITROGEN 5 mg/dL (6-24); CALCIUM 7.8 mg/dL (8.5-10.5); CHLORIDE 104 mMol/L (96-110); CO2 25 mMol/L (22-32); CREATININE 0.7 mg/dL (0.5-1.1); ESTIMATED GFR (MDRD EQUATION) > 60; POTASSIUM 3.4 mMol/L (3.7-5.1); SODIUM 139 mMol/L (135-145)
--- NOTE | 2016-07-21 04:56 | NUR ---
Significant Event: A/OX3, VSS ON 1L PER NC. CHEST TUBE DRESSING CHANGED LAST NIGHT, NOW IS C/D/I, HAD 90mL DRAINAGE OUT. 1 TAB OF NORCO GIVEN X2 LAST AT 0144 FOR COMPLAINTS OF PAIN. PT. GETS UP SBA IN ROOM. NEEDS LOTS OF ENCOURAGEMENT TO START WALKING IN HALLS. IV TO R)FA HAS 1/2NS @ 75mL/HR. CONTINUES ON IV ROCEPHIN. LEE INTACT WITH 2800mL UOP. AC/HS ACCUCHECKS. Follow up: CONTINUE WITH POC.
--- NOTE | 2016-07-21 14:11 | NUR ---
Significant Event:A/O X 3. Ambulates with SBA in the echols x 30 ft today. Needs encouragement to get up and sit in chair. Desats to 80's on RA when sleeping. 1L O2/NC when sleeping. NSR. SBP 140's to 180's with activity. HR 80's. CT to suction with serosang drainage. IV SL's. Tolerating PO fluids and nutrition. Increased to moderate SSI today. BS at 1100 was 222. Given additional PO Potassium. 1 [place] given x 2, last at 1030 for r) "chest tube" pain. Citlali [place] in to speak to patient about dismissal plans. Patient reports that she doesn't want to commit to plans until she is closer to dismissal. Discussed need for preliminary plans. Patient "will think about it". Refused shower or bath. Follow up:
--- NOTE | 2016-07-21 14:59 | NUR ---
Introduced self and role of care management to patient. She is familiar with me from her previous visit. We discussed her discharge plans. She states that she has been thinking that she will "just rent a car and drive" to her friends in [place]. I did explain that I did not think she would have the energy to do all that driving by herself. I asked if maybe her family could come drive her. She states that she "doesnt want to bother them." She tells me that she has all these friends and family but when you ask her if any can help her after she is discharged she says no. She still wants to go to a VA facility and have the VA cover the expense. I explained that we had not heard back from the sources with the VA who we had reached out to. She states "well if I dont have anywhere to go I will just get in a car and drive to the [facility] then they will have to find somewhere for me." She denies any other needs at this time. Will continue to follow.
[2016-07-22 03:31] LABS: HEMATOCRIT 32.2 % (33.0-46.0); HEMOGLOBIN 10.3 g/dL (10.0-15.0); MCV 93.9 fl (83.0-98.0); MPV 9.3 fl (9.4-12.4); RBC 3.43 M/uL (3.50-5.50); RDW-CV 14.2 % (11.9-14.6)
[2016-07-22 03:33] LABS: PLATELET COUNT 546 K/uL (150-450)
[2016-07-22 03:39] LABS: ALBUMIN 2.4 gm/dL (3.5-5.0); ANION GAP 12.8 (10.0-19.0); BLOOD UREA NITROGEN 5 mg/dL (6-24); CALCIUM 8.7 mg/dL (8.5-10.5); CHLORIDE 103 mMol/L (96-110); CO2 26 mMol/L (22-32); CREATININE 0.7 mg/dL (0.5-1.1); ESTIMATED GFR (MDRD EQUATION) > 60; POTASSIUM 3.8 mMol/L (3.7-5.1); SODIUM 138 mMol/L (135-145)
[2016-07-22 04:26] LABS: ABSOLUTE NEUTROPHIL CT (ANC) 6.7 K/uL (1.8-7.8); BANDED NEUTROPHIL # 0.6 K/uL (0.0-0.1); BANDED NEUTROPHILS % 5 %; LYMPHOCYTE # 4.4 K/uL (0.8-4.0); LYMPHOCYTE % 37 %; MONOCYTE # 0.5 K/uL (0.0-1.0); SEGMENTED NEUTROPHIL # 6.1 K/uL (1.8-7.8); SEGMENTED NEUTROPHIL % 51 %
--- NOTE | 2016-07-22 05:05 | NUR ---
Significant Event:A/Ox3. Afebrile. SBP 140-150s. Sats >90% on RA while awake and 1L/NC when sleeping. 2^1 CT to R)lateral chest 60ml sanguinous drainage, no crepitus noted, CT to suction. Transfers 1 assist, needs encouragement to ambulate. 2 tabs [place] x2 last dose 0315. HS blood glucose 210 received 4 units per SSI. Pierce to DD with 2250ml uop. PIV to R)FA saline locked. Follow up:Continue to monitor respiratory status and possible d/c pierce.
--- NOTE | 2016-07-22 17:14 | NUR ---
Significant Event: A/Ox3. Afebrile. VSS on RA. Ambulates in echols and room today and tolerated well. PIV to R)FA saline locked and flushes well with good blood return and no complications. Patient has been getting [place] for pain and last dose was 2 tabs at 1540. Requests to wash her hair this evening. Chest tube was changed from suction to water seal by gravity today. Follow up: D/C stan at midnight. Labs and XRAY tomorrow morning. Continue working on dismissal plans.
[2016-07-23 03:26] LABS: BASOPHIL # 0.1 K/uL (0.0-0.2); BASOPHIL % 0.8 %; EOSINOPHIL # 0.5 K/uL (0.0-0.5); EOSINOPHIL % 4.1 %; HEMATOCRIT 31.1 % (33.0-46.0); HEMOGLOBIN 10.2 g/dL (10.0-15.0); IMMATURE GRANULOCYTE # 0.1 K/uL (0.0-0.3); IMMATURE GRANULOCYTE % 0.8 %; LYMPHOCYTE # 4.9 K/uL (0.8-4.0); LYMPHOCYTE % 37.6 %; MCH 30.4 pg (27.0-34.0); MCHC 32.8 gm/dL (32.0-36.5); MCV 92.6 fl (83.0-98.0); MONOCYTE # 1.2 K/uL (0.0-1.0); MONOCYTE % 9.1 %; MPV 8.9 fl (9.4-12.4); NEUTROPHIL # (ANC) 6.2 K/uL (1.8-7.8); NEUTROPHIL % 47.6 %; NRBC % 0 /100WBC (0-0.00); PLATELET COUNT 581 K/uL (150-450); RBC 3.36 M/uL (3.50-5.50); RDW-CV 14.1 % (11.9-14.6)
--- NOTE | 2016-07-23 04:37 | NUR ---
Significant Event: Patient alert and oriented throughout shift. Complained of pain x 2 with last norco x 2 tabs given at approx 0230. Patient uses call light frequently, appears that she just wants to talk at times. Encouraged conversation with all interactions. Patient talkative and pleasant/cooperative with cares. Wishes to have Dr Marroquin explain current diagnosis and prognosis to her. CT intact and draining, 20 ml Sanguenous drainage this shift. Martinez DC'd at approx 0040 and patient reporting mild urge to void at this time. Right side slightly coarse at times. Coughing encouraged. Patient BS 203 @ HS, reported she felt like her sugars were low this am and sugar was 130's upon check. Patient verbalized confusion as to what low BS felt like. Follow up: Continue to monitor per POC
--- NOTE | 2016-07-23 17:17 | NUR ---
Significant Event: A/Ox3. Afebrile. VSS on room air. Patient has remained in bed for the day but tolerated walk in hallway with therapy this am. Complains of pain regularly and was last given [place] at 1502. Chest tube was pulled out at 0910. D/C levemir today and continue with AC/HS accuchecks with sliding sclae and glucophage dose was increased. Follow Up: X-RAY and labs in the am and continue [facility] future dismissal plans.
[2016-07-24 04:27] LABS: HEMATOCRIT 30.2 % (33.0-46.0); HEMOGLOBIN 9.8 g/dL (10.0-15.0); MCH 30.2 pg (27.0-34.0); MCHC 32.5 gm/dL (32.0-36.5); MCV 93.2 fl (83.0-98.0); MPV 9.2 fl (9.4-12.4); PLATELET COUNT 612 K/uL (150-450); RBC 3.24 M/uL (3.50-5.50); WBC 15.3 K/uL (4.0-11.0)
--- NOTE | 2016-07-24 04:29 | NUR ---
Significant Event: Patient alert and oriented x 3. Requested norco 2 tabs at approx 2000, relief noted. Patient slept much of shift however when asked she states she has been unable to sleep. IV in F wrist D/C'd DT leaking, New 20 gauge started in [place] FA with good blood return. Patient tolerates IV abx without issue or complaint. 2 units insulin given for mod sliding scale of 163. Attempted to explain difference between oral agents and insulin, patient needs reinforcement. Dressing on former CT site C/D/I. Patient up to bathroom with minimal assist. Uses call light appropriately. Follow up: Continue to monitor per POC
[2016-07-24 04:46] LABS: ALBUMIN 2.5 gm/dL (3.5-5.0); ANION GAP 13.6 (10.0-19.0); BLOOD UREA NITROGEN 6 mg/dL (6-24); CALCIUM 8.6 mg/dL (8.5-10.5); CHLORIDE 100 mMol/L (96-110); CO2 26 mMol/L (22-32); CREATININE 0.8 mg/dL (0.5-1.1); ESTIMATED GFR (MDRD EQUATION) > 60; MAGNESIUM 1.9 mg/dL (1.3-2.6); PHOSPHORUS 4.6 mg/dL (2.5-4.9); POTASSIUM 3.6 mMol/L (3.7-5.1); SODIUM 136 mMol/L (135-145)
[2016-07-24 05:35] LABS: ABSOLUTE NEUTROPHIL CT (ANC) 7.7 K/uL (1.8-7.8); BANDED NEUTROPHIL # 0.2 K/uL (0.0-0.1); BANDED NEUTROPHILS % 1 %; LYMPHOCYTE # 5.5 K/uL (0.8-4.0); LYMPHOCYTE % 36 %; MONOCYTE # 1.4 K/uL (0.0-1.0); SEGMENTED NEUTROPHIL # 7.5 K/uL (1.8-7.8); SEGMENTED NEUTROPHIL % 49 %
--- NOTE | 2016-07-24 12:48 | NUR ---
Social visit with patient today. We discussed her discharge plans. She would like to stay at the [facility]. I did explain that I had spoken to admissions and they have had to cancel her reserved room for a patients family that is already staying in that room and needed to extend. I aslo called and the [facility] does not have any openings. I did copy the list of local motels/hotels in [place] and gave her a [place] card. I offered to help her find a motel room when we know she will be discharged. I did encourage her to call and make contact with her family and friends becuase she will need assistance while she is recovering. She is not really planning on contacting anyone. She denies needs at this time. Will continue to follow.
--- NOTE | 2016-07-24 16:44 | NUR ---
Significant Event: A/OX3, VSS ON ROOM AIR. PT. GETS UP SBA IN ROOM, WALKED IN HALLS TODAY X2 WITH STAFF, REFUSED TO WALK WITH CARDIAC REHAB. IV ROCEPHIN CONTINUES BID. SLIV TO L)FA. NORCO GIVEN TODAY X3 LAST AT 1545. CHEST TUBE DRESSING CHANGED TODAY, NOW IS C/D/I. SURGICAL SITE TO BACK IS OPEN TO AIR. POSSIBLE D/C TO HOME TOMORROW. PT. NEEDS TO MAKE ARRANGEMENTS TO STAY IN A HOTEL WHEN DISMISSED, NOT ALLOWED TO STAY IN THE [facility] OR [facility]. Follow up: CONTINUE WITH POC.
[2016-07-24 20:05] LABS: BILIRUBIN URINE NEGATIVE (NEGATIVE); BLOOD URINE 25 /UL (NEGATIVE); GLUCOSE URINE NEGATIVE (NEGATIVE); KETONE URINE NEGATIVE (NEGATIVE); LEUKOCYTES URINE 500 /UL (NEGATIVE); NITRITE URINE NEGATIVE (NEGATIVE); PROTEIN URINE 30 mg/dL (NEGATIVE); UROBILINOGEN URINE NORMAL (NORMAL)
[2016-07-24 20:09] LABS: COLOR URINE YELLOW (YELLOW); TURBIDITY URINE 2+ (CLEAR)
[2016-07-24 20:27] LABS: BACTERIA URINE RARE (NEGATIVE); HYALINE CAST URINE 0-2 #/LPF (NEGATIVE); WBC CLUMPS URINE RARE (NEGATIVE); YEAST URINE FEW (NEGATIVE)
[2016-07-25 04:08] LABS: HEMATOCRIT 31.7 % (33.0-46.0); MCH 29.7 pg (27.0-34.0); MCHC 31.5 gm/dL (32.0-36.5); MCV 94.1 fl (83.0-98.0); MPV 9.1 fl (9.4-12.4); PLATELET COUNT 609 K/uL (150-450); RBC 3.37 M/uL (3.50-5.50); RDW-CV 13.9 % (11.9-14.6); WBC 14.8 K/uL (4.0-11.0)
--- NOTE | 2016-07-25 04:14 | NUR ---
Significant Event: Patient A/Ox3. VSS on RA. HR 76-92. SBP 110-145. Up 1-assist to bathroom. Ambulated in halls with [employer] at 0. Patient did one lap and tolerated it well. [place] given x1 for pain at 2144. Follow Up: Discharged today?
[2016-07-25 05:57] LABS: LYMPHOCYTE # 6.5 K/uL (0.8-4.0); LYMPHOCYTE % 43 %; MONOCYTE # 0.7 K/uL (0.0-1.0); SEGMENTED NEUTROPHIL % 47 %
--- NOTE | 2016-07-25 12:39 | NUR ---
Social visit with patient today. I assisted her in completing the VA eligibility form and faxed to Haylee at the [place] ([phone]). We discussed discharge plans. She is planning on staying at the [facility] until Thursday when she has a friend from [place] coming to get her and drive her to her sons in [facility]. She will take the [employer] to the mot. She denies any needs at this time. Will continue to follow.
--- NOTE | 2016-07-25 14:48 | NUR ---
CONSULT RECEIVED FOR DM DIET ED. PT CURRENTLY DEALING W/ NAUSEA AND NOT FEELING WELL. PT REQUESTED RD RETURN LATER. PLAN FOR PT TO DC TOMORROW. WILL PROVIDE ED TO PT PRIOR TO DC.
--- NOTE | 2016-07-25 18:47 | NUR ---
Significant Event: A/Ox3. SBP- 130-150s. P-70-90s. Afebrile. Room air. L)FA saline locked. Up with SBA. Chest tube sites x2 covered with gauze and silk tape, C/D/I. Surgical insicion STATISTICAL REPORTING ANALYST with edges approximated. [place] given x3, 2tabs, last dose at 1800. AC/HS accuchecks. Follow up: Print discharge medications in AM for possible discharge.
--- NOTE | 2016-07-26 04:53 | NUR ---
Significant Event: PATIENT IS A/O X3. VSS. HR 60-80'S. SBP 90-130'S. AFEBRILE. 02 SATS IN LOW TO MID 90'S ON RA. DESATS IN SLEEP BUT COMES UP BY SELF WITHIN ONE MINUTE. C/O PAIN TO RIGHT SIDE. NORCO GIVEN WITH SOME RELIEF. LUNGS VARRIED FROM CLEAR/DIM IN UPPER LOBES TO DIM/SLIGHTLY COARSE IN BASES. DRESSING TO RIGHT SIDE CHANGED YESTERDAY AND IS C/D/I. UP WITH SBA TO RESTROOM. AMBULATE IN HALLS WITH WHEELCHAR X1. SOB WITH ACTIVITY. BOWELS ACTIVE. VOIDS PER RESTROOM. REDNESS TO BOTTOM. BLANCHABLE AND ALOE APPLIED. IV TO LEFT FOREARM SL. Follow up: CONTINUE TO MONITOR PER PLAN OF CARE. POSSIBLY HOME TODAY?
[2016-07-26 05:15] LABS: HEMATOCRIT 32.7 % (33.0-46.0); HEMOGLOBIN 10.3 g/dL (10.0-15.0); MCH 29.9 pg (27.0-34.0); MCHC 31.5 gm/dL (32.0-36.5); MCV 95.1 fl (83.0-98.0); MPV 9.1 fl (9.4-12.4); PLATELET COUNT 636 K/uL (150-450); RBC 3.44 M/uL (3.50-5.50); RDW-CV 13.8 % (11.9-14.6); WBC 13.6 K/uL (4.0-11.0)
[2016-07-26 06:28] LABS: ABSOLUTE NEUTROPHIL CT (ANC) 6.3 K/uL (1.8-7.8); BANDED NEUTROPHIL # 0.1 K/uL (0.0-0.1); BANDED NEUTROPHILS % 1 %; LYMPHOCYTE # 5.4 K/uL (0.8-4.0); LYMPHOCYTE % 40 %; MONOCYTE # 1.2 K/uL (0.0-1.0); SEGMENTED NEUTROPHIL # 6.1 K/uL (1.8-7.8); SEGMENTED NEUTROPHIL % 45 %
--- NOTE | 2016-07-26 11:48 | NUR ---
SPOKE W/ PT RE: DM DIET. PT REPORTED SHE WAS SLEEPY AND FOR RD TO COME BACK LATER HOWEVER RD SPENT 45 MINS IN ROOM WITH PT. UNABLE TO GO OVER WRITTEN DIET INFO W/ PT PT WAS ASKING ABOUT OTHER MEDICAL ISSUES (TOE NAILS, FOOT CARE, LOW BLOOD SUGARS, PNA, ETC). DID DISCUSS WATCHING PORTION SIZES AT MEALS. PT REPORTS UPSET STOMACH WHEN EATING FRIED FOODS - ENC PT TO LIMIT FRIED FOODS. PT MORE CONCERNED WITH DISCHARGE PLANS AND SITUATION. DID STATE A FAMILY MEMBER IS A DOCTOR AND WILL HELP HER MANAGE HER DM. PT DID WANT WRITTEN INFO. PROVIDED PT WITH CARB COUNTING HANDOUT AND BOOKS, SNACK LISTS, AND RD CONTACT INFO. ENC PT TO EAT SMALL FREQUENT MEALS IF THAT IS WHAT IS SHE USED TO DOING. DID ENC PT TO EAT SNACK BEFORE BEDTIME PT REPORTED LOW BLOOD SUGAR OVERNIGHT ONE NIGHT. EXPECT FAIR COMPLIANCE. WILL ASSIST NEEDED.
[2016-07-26] MEDS ORDERED: FLORASTOR250 MG PO (17:01)
[2016-07-26] MEDS ORDERED: NORCO 5-325 TA1 EACH PO (17:02)
[2016-07-26] MEDS ORDERED: AUGMENTIN XR1000 MG PO (17:03)
--- NOTE | 2016-07-26 18:43 | NUR ---
DISCHARGE: A/O X3. UP AD RIDDHI. VSS. NORCO 1 TAB GIVEN FOR PAIN TO RIGHT CHEST @ 1717. PIV REMOVED,NO COMPLICATIONS. VOIDING WELL. BM THIS SHIFT. ROOM AIR. DISCHARGE INSTRUCTIONS REVIEWED. NEED TO SET UP F/U APPOINTMENT ADDRESSED. NEW MEDICATIONS AND MEDICATION CHANGES REVIEWED. BELONGINGS SENT WITH PATIENT. Yi De CALLED FOR RIDE. PATIENT PLANS TO STAY AT [facility]. DISCHARGE @ 1835. TAKEN TO [facility] BY WHEELCHAIR BY NURSE.
== END 2016-07-26 18:35 | disposition disaster alternative care site (69) | DRG 163 ==
LOC: GMED 07:58 → GPCU 13:25 → GMSU 13:25 → GPCU 07-18 12:39
PROVIDERS: Emergency Medicine; Internal Medicine; Nurse Practitioner Women's Health; Physician Assistant; Thoracic Surgery (Cardiothoracic Vascular Surgery); ADMIT Internal Medicine
PROC: 0W9930Z Drainage of Right Pleural Cavity with Drainage Device, Percutaneous Approach (ICD-10-PCS; 2016-07-15)
PROC: 0W993ZZ Drainage of Right Pleural Cavity, Percutaneous Approach (ICD-10-PCS; 2016-07-15)
PROC: 0BDN4ZZ Extraction of Right Pleura, Percutaneous Endoscopic Approach (ICD-10-PCS; principal; 2016-07-18)
PROC: 0W9940Z Drainage of Right Pleural Cavity with Drainage Device, Percutaneous Endoscopic Approach (ICD-10-PCS; principal; 2016-07-18)
PROC: 30233N1 Transfusion of Nonautologous Red Blood Cells into Peripheral Vein, Percutaneous Approach (ICD-10-PCS; 2016-07-18)
DX: J86.9 Pyothorax without fistula (principal); J13 Pneumonia due to Streptococcus pneumoniae; J96.21 Acute and chronic respiratory failure with hypoxia; R57.1 Hypovolemic shock; J91.8 Pleural effusion in other conditions classified elsewhere; D62 Acute posthemorrhagic anemia; E11.649 Type 2 diabetes mellitus with hypoglycemia without coma; I10 Essential (primary) hypertension; E11.65 Type 2 diabetes mellitus with hyperglycemia; Z79.84 Long term (current) use of oral hypoglycemic drugs; G47.33 Obstructive sleep apnea (adult) (pediatric); Z87.891 Personal history of nicotine dependence; Z79.82 Long term (current) use of aspirin; E87.6 Hypokalemia; K21.9 Gastro-esophageal reflux disease without esophagitis; M19.90 Unspecified osteoarthritis, unspecified site; R91.1 Solitary pulmonary nodule; D47.3 Essential (hemorrhagic) thrombocythemia; R19.7 Diarrhea, unspecified; B35.1 Tinea unguium; E66.3 Overweight; Z68.27 Body mass index [BMI] 27.0-27.9, adult; R15.2 Fecal urgency; R52 Pain, unspecified; D72.829 Elevated white blood cell count, unspecified
CPT/HCPCS: C1894; G0237; G0424; J0696; J1100; J1265; J1644; J1885; J2001; J2250; J2270; J2405; J2543; J3010; J3370; J3480; J7030; J7040; J7050; J7612; P9016; P9045; P9047; Q9967